=== PATIENT | female | born 1980 | race Caucasian/White ===

== ENCOUNTER 2017-05-02 17:53 | Emergency (ER) | payer MEDICAID, OTHER ==
[2017-05-02] MEDS: ONDANSETRON 4 MG INJ IV (19:52)
[2017-05-02] MEDS: SOD CHLORIDE 0.9% 1,000 ML IV (19:53)
[2017-05-02] MEDS: KETOROLAC 15 MG INJ IV (19:53)
[2017-05-02] MEDS: DICYCLOMINE 20 MG INJ IM (20:14)
== END 2017-05-02 20:43 | disposition home or self-care (01) ==
LOC: FTE 17:53
DX: R51 Headache (principal); J34.89 Other specified disorders of nose and nasal sinuses; R05 Cough; R11.2 Nausea with vomiting, unspecified; R19.7 Diarrhea, unspecified
CPT/HCPCS: 96372; 96374; 96375; 99284-25

== ENCOUNTER 2018-11-20 10:22 | Emergency (ER) | payer MEDICAID ==
[2018-11-20 11:11] LABS: ADD MAN DIFF? NO
[2018-11-20 11:15] LABS: WHITE BLOOD COUNT 7.7 10^3/ul (4.8-10.8)
[2018-11-20 11:15] LABS: BASOPHILS % 0.5 % (0.0-2.0); EOSINOPHILS # 0.2 10^3/ul (0.0-0.5); EOSINOPHILS % 2.9 % (0.0-7.0); HEMATOCRIT 41.8 % (37.0-47.0); LYMPHOCYTES # 2.4 10^3/ul (0.8-2.9); LYMPHOCYTES % 30.9 % (15.0-51.0); MEAN CORPUSCULAR HEMOGLOBIN 21.1 pg (29.0-33.0); MEAN CORPUSCULAR HGB CONC 31.1 g/dl (32.0-37.0); MEAN CORPUSCULAR VOLUME 67.7 fl (82.0-101.0); MEAN PLATELET VOLUME 10.1 fl (7.4-10.4); MONOCYTE # 0.4 10^3/ul (0.3-0.9); MONOCYTES % 5.7 % (0.0-11.0); NEUTROPHIL # 4.6 10^3/ul (1.6-7.5); NEUTROPHILS % 59.7 % (39.0-77.0); PLATELET COUNT 398 10^3/UL (140-415); RED BLOOD COUNT 6.17 10^6/ul (4.20-5.40); RED CELL DISTRIBUTION WIDTH 14.3 % (11.5-14.5)
[2018-11-20 11:23] LABS: ADD UMIC YES; UR ASCORBIC ACID NEGATIVE (NEGATIVE); UR BACTERIA FEW /HPF (NONE SEEN); UR BILIRUBIN (Dip) NEGATIVE (NEGATIVE); UR BLOOD (Dip) 3+ mg/dL (NEGATIVE); UR CLARITY SLIGHTLY CLOUDY (CLEAR); UR COLOR STRAW (YELLOW); UR GLUCOSE (Dip) NEGATIVE (NEGATIVE); UR KETONES (Dip) NEGATIVE (NEGATIVE); UR LEUKOCYTE ESTERASE (Dip) NEGATIVE Leu/ul (NEGATIVE); UR NITRITE (Dip) NEGATIVE (NEGATIVE); UR RBC 1 /HPF (0-5); UR SPECIFIC GRAVITY (Dip) 1.003 (1.003-1.030); UR SQUAMOUS EPITHELIAL CELL MODERATE /HPF (FEW); UR TOTAL PROTEIN (Dip) NEGATIVE (NEGATIVE); UR UROBILINOGEN (Dip) NEGATIVE (NEGATIVE); UR WBC 3 /HPF (0-5)
== END 2018-11-20 12:23 | disposition home or self-care (01) ==
LOC: FTE 10:22
DX: O02.1 Missed abortion (principal); R10.9 Unspecified abdominal pain
CPT/HCPCS: 36415; 76801; 76817; 81001; 84702; 85025; 86900; 86901; 87086; 99284-25

== ENCOUNTER 2018-11-23 11:50 | Emergency (ER) | payer MEDICAID | END 2018-11-23 15:23 | disposition home or self-care (01) | LOC: FTE 15:23 | DX: O02.1 Missed abortion (principal) | CPT/HCPCS: 76801; 76817; 99284-25 ==